=== PATIENT | female | born 1970 | race Caucasian/White ===

== ENCOUNTER 2022-07-24 11:44 | Emergency (ER) | payer OTHER, SELFPAY ==
[2022-07-24 12:00] VITALS: BP 123/73; PULSE 83; RESP 14; TEMP 36.2; O2SAT 97; BMI 30.4
--- NOTE | 2022-07-24 12:11 | CRLHL7_ITS ---
For Patients: As a result of the Century Cures Act, medical imaging exams and procedure reports are released immediately into your electronic medical record. You may view this report before your referring provider. If you have questions, please contact your health care provider. Indication: Injury and pain. Technique: Left ankle 3 views. Comparison: None. Findings: Bones: Alignment is normal. No fractures or bone lesions. Joint spaces: Unremarkable. Soft tissues: Unremarkable. Impression: No sign left ankle fracture or dislocation. Dictated by Justin Wong MD @ 07/24/2022 1:08:51 PM (Electronically Signed)
--- NOTE | 2022-07-24 12:14 | ED.LOWEXIN ---
HPI - Extremity Injury (Lower) General Chief Complaint: Extremity Pain/Injury, Lower Stated Complaint: L ankle injury Time Seen by Provider: 07/24/22 11:47 History of Present Illness HPI Narrative: This 51-year-old female comes in with an injury to her left ankle. This occurred yesterday. She states that she wears boots every day at work and there was some protection with the boot strapped up above her ankle as usual. She did fall but did not have any other injury. She comes in today because she has persistent pain. She states that she is able to ambulate on this injured leg. Related Data Home Medications Medication Instructions Recorded Confirmed No Known Home Medications 07/24/22 07/24/22 Allergies Allergy/AdvReac Type Severity Reaction Status Date / Time No Known Drug Allergies Allergy Verified 07/24/22 12:03 Review of Systems Status of ROS: Reports: 10 or more systems reviewed and unremarkable except as noted in History and below Narrative: Constitutional: No fevers, no weight gain or loss. Eyes: No discharge. No vision changes. HENT: No congestion, no sore throat, no ear pain. Cardiovascular: No chest pain, no palpitations. Respiratory: No shortness of breath, no wheezes, no cough. Gastrointestinal: No abdominal pain, no vomiting, no diarrhea. Genitourinary: No dysuria, no hematuria. Musculoskeletal: Pain on the lateral aspect of the left ankle. Skin: No rashes, no pruritis. Neurological: No dizziness, weakness, sensory change, speech change. Endo/Heme/Allergies: No bruising or bleeding. No polydipsia. Pysch: no suicidality, no anxiety, no insomnia. All other systems reviewed and are negative. PFSH PFS Social History Smoking Status: Current every day smoker What tobacco products do you use: cigarettes Smoking packs per day: 0.5 Smoking cigarettes per day: 10.0 Do you use any of these nicotine containing products: None How often do you have a drink containing alcohol: 2-3 times a week AUDIT-C Alcohol total score: 3 Non-prescribed substance use: denies use Exam Narrative: Exam Narrative: Constitutional: Well-developed, well-nourished, no acute distress. HEENT: Normocephalic, atraumatic. Neck: Normal range of motion. Nontender. Supple. Heart: Regular. No murmurs. Normal rate. Intact distal pulses. Lungs: Clear to auscultation. No chest discomfort. No wheezes, rhonchi, or rales. Abdomen: Normal bowel sounds. Nontender. No rebound tenderness. Genitalia: Deferred. Back: No midline tenderness. Normal range of motion. Extremities: Left ankle has mild swelling on the lateral aspect. There is no sign of effusion or joint instability. Skin: Intact. No rash. Warm. No erythema or pallor. Neurologic: No altered sensation. No weakness. Alert and oriented. Psychiatric: No suicidality. No anxiety or depression. No insomnia. Nursing notes and vitals signs are reviewed. Const: Vital Signs, click to edit/add: Vital Signs - 24 hr 07/24/22 12:00 Temperature 97.2 F L Pulse Rate [Pulse Oximeter] 83 Respiratory Rate 14 Blood Pressure [Ri t Upper Arm] 123/73 Pulse Oximetry 97 Oxygen Delivery Me thod Room Air Course Vital Signs Vital signs: Initial Vital Signs Temperature 97.2 F L 07/24/22 12:00 Temperature Source Temporal Artery Scan 07/24/22 12:00 Pulse Rate 83 07/24/22 12:00 Pulse Rhythm 07/24/22 12:00 Respiratory Rate 14 07/24/22 12:00 Blood Pressure 123/73 07/24/22 12:00 Blood Pressure Mean 89 07/24/22 12:00 Pulse Oximetry 97 07/24/22 12:00 Oxygen Delivery Method 07/24/22 12:00 Vital Signs Temperature 97.2 F L 07/24/22 12:00 Pulse Rate 83 07/24/22 12:00 Respiratory Rate 14 07/24/22 12:00 Blood Pressure 123/73 07/24/22 12:00 Pulse Oximetry 97 07/24/22 12:00 Oxygen Delivery Method 07/24/22 12:00 Temperature 97.2 F L 07/24/22 12:00 Pulse Rate 83 07/24/22 12:00 Respiratory Rate 14 07/24/22 12:00 Blood Pressure 123/73 07/24/22 12:00 Pulse Oximetry 97 07/24/22 12:00 Oxygen Delivery Method 07/24/22 12:00 MDM - Extremity Injury (Lower) MDM Narrative Medical decision making narrative: This patient comes in with an injury to her left ankle. X-ray imaging shows no sign of fracture dislocation. She is able to ambulate on this ankle but has a limp due to pain. I encouraged activity as tolerated. She did receive a return to work slip also. Imaging Data XR L Ankle: Radiologist's impression: No sign left ankle fracture or dislocation. Discharge Plan Discharge Clinical Impression: Ankle sprain and strain Patient Disposition: Home, Self-Care Condition: Stable Additional Instructions: Increase activity as tolerated. Use [id number] medicines as needed and directed. Follow up with MD or return if worsening. Prescriptions: No Action No Known Home Medications Follow Up/Referrals: Provider,Not a Local [Primary Care Provider] - Stand Alone Forms: [employer] Info Instructions
== END 2022-07-24 13:35 | disposition home or self-care (01) ==
PROVIDERS: Emergency Provider Emergency Medicine Emergency Medical Services
DX: S93.402A Sprain of unspecified ligament of left ankle, initial encounter (principal)
CPT/HCPCS: 73610; 99283; 99284